=== PATIENT | female | born 1945 | race Caucasian/White ===

== ENCOUNTER 2023-10-31 14:08 | Emergency (ER) | payer MEDICARE ==
[~2023-10-31] VITALS: Ht 162.6 cm; Wt 74.8 kg
[~2023-10-31 14:08] MED LIST: APIX5TAB PO; EPIN0.3P19 IJ; FERR325T22 PO; FLEC100T3 PO; FURO20TA4 PO; LEVO50TA4 PO
[2023-10-31] MEDS: ACETAMINOPHEN 500 MG TABLET PO ONE (15:04)
[2023-10-31] MEDS: AMOX/CLAV 875/125MG TAB PO ONE (15:04)
[2023-10-31] MEDS: DEXAMETHASONE SOD PHOSPHATE 4 MG/ML 1ML VIAL IM ONE (15:05)
[2023-10-31 15:15] LABS: RAPID GROUP A STREP negative (NEGATIVE)
[2023-10-31 15:20] LABS: SARS-CoV-2, RNA, NAAT NEGATIVE SARS CoV-2 (NEGATIVE)
[2023-10-31 15:25] LABS: INFLUENZA TYPE A Negative For Type A (NEGATIVE); INFLUENZA TYPE B Negative For Type B (NEGATIVE)
[2023-10-31] MEDS ORDERED: AMOX1TAB16 PO (15:36)
[2023-10-31] MEDS ORDERED: METH4TAB3 PO (15:36)
[2023-10-31 15:54] VITALS: BP 137/85; PULSE 78; RESP 18; O2SAT 100
== END 2023-10-31 15:53 | disposition home or self-care (01) ==
LOC: EDH 14:08
DX: J02.9 Acute pharyngitis, unspecified (principal); Z79.01 Long term (current) use of anticoagulants; Z91.030 Bee allergy status; Z20.822 Contact with and (suspected) exposure to COVID-19
CPT/HCPCS: 99283; 87635; 87880; 87804 ×2; 96372; J1100